=== PATIENT | female | born 1990 | race African-American/Black ===

== ENCOUNTER 2016-06-30 16:48 | Emergency (ER) | payer OTHER ==
[~2016-06-30] VITALS: Ht 167.6 cm; Wt 78.1 kg
[~2016-06-30 16:48] MED LIST: AMOXICILLIN500 M1 PO; ANAPROX DS550 M1 PO; ANTIVERT25 MG PO; BACTRIM,SEPT1 TABLET PO; CARAFATE1 GM PO; CLINDAMYCIN HC300 MG PO; FLEXERIL10 MG PO; IBUPROFEN600 MG PO; INDOCIN25 MG PO; MOTRIN800 MG PO; NAPROSYN-EC500 MG PO; NAPROSYN500 MG PO; NAPROXEN500 MG PO; NOHOMEMEDS; NORCO 5/3251 TABLET PO; PEN-VEE K,VEET500 MG PO; PRILOSEC20 MG PO; PROTONIX40 M1 PO; PROTONIX40 MG PO; TRAMADOL HCL50 MG PO; TYLENOL WITH C1 EACH PO; ULTRAM50 MG PO; ZANTAC150 MG PO; ZOFRAN ODT4 MG PO
[2016-06-30 17:32] LABS: HEMATOCRIT 39.2 % (36.0-46.0); MCH 27.6 PG (29.0-34.0); MCHC 32.9 G/DL (30.0-36.0); MCV 83.9 FL (83-99); PLATELET COUNT 389 K/uL (156-360); RBC DIS.WIDTH-CV 13.1 % (11.8-14.6); RBC DIS.WIDTH-SD 39.6 % (39-53); RED BLOOD COUNT 4.67 M/uL (3.80-5.20); WHITE BLOOD COUNT 8.3 K/uL (4.1-10.2)
[2016-06-30 17:46] LABS: CHLORIDE 107 mEq/L (99-109); POTASSIUM 3.6 mEq/L (3.7-5.4); SODIUM 141 mEq/L (136-147)
[2016-06-30 17:47] LABS: GLUCOSE 64 mg/dL (70-99)
[2016-06-30 17:49] LABS: ANION GAP 8 MEQ/L (2-14)
[2016-06-30 17:51] LABS: GFR ESTIMATE (CALCULATED) > 59 mL/min/
[2016-06-30 17:52] LABS: UREA NITROGEN (BUN) 13 mg/dL (9-23)
[2016-06-30 18:21] LABS: TOTAL BILIRUBIN 0.2 mg/dL (0.0-1.0)
[2016-06-30 18:22] LABS: ALKALINE PHOSPHATASE 57 IU/L (3-129)
[2016-06-30 18:25] LABS: DIRECT BILIRUBIN 0.1 mg/dL (0.0-0.3)
[2016-06-30 18:26] LABS: LIPASE 27 U/L (1.0-51.0)
[2016-06-30 18:32] LABS: QUANTITATIVE HCG < 4.0 MIU/ML
[2016-06-30 18:37] LABS: ADD MIUA? YES; BILIRUBIN NEGATIVE; BLOOD NEGATIVE; COLOR YELLOW ((YELLOW)); GLUCOSE (STRIP) NEGATIVE; KETONES 5; LEUKOCYTES NEGATIVE; NITRITE NEGATIVE; PROTEIN (STRIP) NEGATIVE; SPECIFIC GRAVITY 1.034 (1.000-1.030); UROBILINOGEN 0.2 MG/DL (0.2-1.0)
[2016-06-30 18:41] LABS: BACTERIA NONE SEEN /HPF; EPITHELIAL CELLS 1+ /HPF; MUCUS TRACE /LPF; RED BLOOD CELLS 0-5 /HPF (0-5); UCUL ADDED? NO; WHITE BLOOD CELLS 0-5 /HPF (0-5)
[2016-06-30] MEDS ORDERED: FLEXERIL10 MG PO (19:35)
[2016-06-30] MEDS ORDERED: ZOFRAN4 MG PO (19:35)
[2016-06-30] MEDS ORDERED: NORCO 5/3251 TABLET PO (19:35)
[2016-06-30 19:45] VITALS: BP 112/67
== END 2016-06-30 19:46 | disposition home or self-care (01) ==
LOC: EME 16:48 → RME 16:48
DX: R10.9 Unspecified abdominal pain (principal)
CPT/HCPCS: 74176; 80048; 80076; 81003; 83690; 84702; 85027; 99281; 99284

== ENCOUNTER 2016-08-09 22:38 | Emergency (ER) | payer OTHER ==
[~2016-08-09] VITALS: Ht 167.6 cm; Wt 81.7 kg
[~2016-08-09 22:38] MED LIST changes: +ZOFRAN4 MG PO
[2016-08-10] MEDS ORDERED: SKELAXIN800 MG PO (00:38)
[2016-08-10] MEDS ORDERED: PERCOCET 5/31 TABLET PO (00:38)
[2016-08-10] MEDS ORDERED: MOTRIN600 MG PO (00:38)
[2016-08-10 01:06] VITALS: BP 106/78
== END 2016-08-10 01:06 | disposition home or self-care (01) ==
LOC: EME 22:38
DX: S16.1XXA Strain of muscle, fascia and tendon at neck level, initial encounter (principal); S20.20XA Contusion of thorax, unspecified, initial encounter; S39.012A Strain of muscle, fascia and tendon of lower back, initial encounter; V49.50XA Passenger injured in collision with unspecified motor vehicles in traffic accident, initial encounter
CPT/HCPCS: 71100; 99281; 99283

== ENCOUNTER 2017-10-11 16:42 | Emergency (ER) | payer OTHER ==
[~2017-10-11] VITALS: Ht 167.6 cm; Wt 80.2 kg
[~2017-10-11 16:42] MED LIST changes: +MOTRIN600 MG PO; +PERCOCET 5/31 TABLET PO; +SKELAXIN800 MG PO
[2017-10-11 17:05] VITALS: BP 104/80
[2017-10-11 17:43] LABS: HEMATOCRIT 35.9 % (36.0-46.0); MCH 27.5 PG (29.0-34.0); MCHC 33.4 G/DL (30.0-36.0); MCV 82.2 FL (83-99); PLATELET COUNT 382 K/uL (156-360); RBC DIS.WIDTH-CV 13.7 % (11.8-14.6); RBC DIS.WIDTH-SD 41.3 % (39-53); RED BLOOD COUNT 4.37 M/uL (3.80-5.20); WHITE BLOOD COUNT 13.1 K/uL (4.1-10.2)
[2017-10-11 17:54] LABS: ALBUMIN 4.2 g/dL (3.2-4.8); CHLORIDE 106 mEq/L (99-109); POTASSIUM 3.6 mEq/L (3.7-5.4); SODIUM 140 mEq/L (136-147)
[2017-10-11 17:56] LABS: GLUCOSE 82 mg/dL (70-99)
[2017-10-11 17:57] LABS: TOTAL PROTEIN 7.3 g/dL (6.4-8.3)
[2017-10-11 17:58] LABS: TOTAL BILIRUBIN 0.4 mg/dL (0.0-1.0)
[2017-10-11 17:59] LABS: SERUM ETHYL ALCOHOL < 10 mg/dL
[2017-10-11 18:00] LABS: ALKALINE PHOSPHATASE 62 IU/L (3-129); CREATININE 0.8 mg/dL (0.6-1.3); GFR ESTIMATE (CALCULATED) > 59 mL/min/
[2017-10-11 18:01] LABS: UREA NITROGEN (BUN) 9 mg/dL (9-23)
[2017-10-11 18:02] LABS: AST (GOT) 20 IU/L (2-34)
[2017-10-11 18:04] LABS: ALT (GPT) 14 IU/L (3-49)
[2017-10-11 18:09] LABS: QUANTITATIVE HCG < 4.0 MIU/ML
[2017-10-11 19:03] LABS: APPEARANCE CLEAR ((CLEAR)); BILIRUBIN NEGATIVE; BLOOD NEGATIVE; COLOR YELLOW ((YELLOW)); GLUCOSE (STRIP) NEGATIVE; KETONES 5; LEUKOCYTES NEGATIVE; NITRITE NEGATIVE; PROTEIN (STRIP) NEGATIVE; SPECIFIC GRAVITY 1.015 (1.000-1.030); UROBILINOGEN 0.2 MG/DL (0.2-1.0)
[2017-10-11 19:40] LABS: PHENCYCLIDINE NEGATIVE (25 ng/mL); THC CANNABINOIDS PRESUMPTIVE POSITIVE (50 ng/mL)
[2017-10-11 19:41] LABS: AMPHETAMINE NEGATIVE (500 ng/mL); BARBITURATES NEGATIVE (200 ng/mL); BENZODIAZEPINES NEGATIVE (150 ng/mL); BUPRENORPHINE NEGATIVE (10 ng/mL); COCAINE NEGATIVE (150 ng/mL); METHADONE NEGATIVE (200 ng/mL); METHAMPHETAMINE NEGATIVE (500 ng/mL); OPIATES (MORPHINE) NEGATIVE (100 ng/mL); OXYCODONE NEGATIVE (100 ng/mL); PROPOXYPHENE NEGATIVE (300 ng/mL); TRICYCLIC ANTIDEPRESSANTS NEGATIVE (300 ng/mL)
== END 2017-10-11 20:36 | disposition home or self-care (01) ==
LOC: EME 16:42
PROVIDERS: Emergency Medicine
DX: R42 Dizziness and giddiness (principal); R78.4 Finding of other drugs of addictive potential in blood; Z88.0 Allergy status to penicillin; Z88.5 Allergy status to narcotic agent
CPT/HCPCS: 70450; 80053; 81003; 84702; 84999; 85027; 93005; 99281; 99285; G0480; J7030